=== PATIENT | male | born 1955 | race Caucasian/White ===

== ENCOUNTER 2023-01-29 16:12 | Emergency (ER) | payer OTHER ==
[2023-01-29 16:33] VITALS: BP 137/89; PULSE 61; RESP 20; TEMP 99.2; BMI 23.1
[2023-01-29 17:45] LABS: HEMATOCRIT 44.7 % (35.4-49); HEMOGLOBIN 14.8 G/dL (11.7-16.9); MCH 32.6 pg (25.7-33.7); MCHC 33.2 g/dl (32.0-35.9); MEAN CELL VOLUME 98.4 fl (80-96); MEAN PLT VOLUME 8.5 fl (7.5-11.1); PLATELET COUNT 244.9 10^3/uL (134-434); RBC 4.54 10^6/uL (4.00-5.60); RDW 13.2 % (11.9-15.9); WHITE BLOOD COUNT 6.3 10^3/uL (4.0-10.8)
[2023-01-29 17:57] LABS: ALBUMIN 4.2 g/dl (3.4-5.0); CALCIUM 9.2 mg/dl (8.5-10); CREATININE 0.8 mg/dl (0.55-1.3); MAGNESIUM 1.9 mg/dL (1.8-2.4); POTASSIUM 3.9 mmol/L (3.5-5.1)
== END 2023-01-29 18:51 | disposition home or self-care (01) ==
LOC: FER 16:12
DX: S00.31XA Abrasion of nose, initial encounter (principal); R55 Syncope and collapse; W18.09XA Striking against other object with subsequent fall, initial encounter; Y93.73 Activity, racquet and hand sports; Y92.318 Other athletic court as the place of occurrence of the external cause
CPT/HCPCS: 36415; 70450-TC; 71045-TC-FY; 80053; 83735; 84484; 85027; 93005; 99285-25

== ENCOUNTER 2023-04-05 09:50 | Emergency (ER) | payer OTHER ==
[2023-04-05 10:05] VITALS: BP 153/86; PULSE 63; RESP 18; TEMP 98.2; BMI 22.4
[2023-04-05] MEDS ORDERED: KETOROLAC TROMETHAMINE 30 MG/1 ML VIAL IM ONE (10:12)
[2023-04-05] MEDS ORDERED: KETOROLAC TROMETHAMINE 30 MG/1 ML VIAL ONE (10:14)
== END 2023-04-05 11:48 | disposition home or self-care (01) ==
LOC: FER 09:50
PROC: 3E023GC Introduction of Other Therapeutic Substance into Muscle, Percutaneous Approach (ICD-10-PCS; principal; 2023-04-05)
DX: M25.521 Pain in right elbow (principal)
CPT/HCPCS: 73070-TC-RT-FY; 99284-25

== ENCOUNTER 2023-12-18 06:50 | Day surgery (SDC) | payer OTHER ==
[2023-12-09 16:41] VITALS: BMI 23.1
[2023-12-18] MEDS ORDERED: BUPIVACAINE HCL/EPINEPHRINE/PF 30 ML VIAL IJ ONE (07:27)
[2023-12-18] MEDS ORDERED: PROPOFOL 20 ML ONE ×2 (08:17→09:06)
[2023-12-18] MEDS ORDERED: MIDAZOLAM HCL 2 MG/2 ML SINGLE DOSE VIAL ONE (08:17)
[2023-12-18] MEDS ORDERED: ceFAZolin SODIUM 1 GM VIAL ONE ×2 (08:52→09:05)
[2023-12-18] MEDS ORDERED: DEXAMETHASONE SOD PHOSPHATE 4 MG/1 ML VIAL ONE ×2 (08:52→09:05)
[2023-12-18] MEDS ORDERED: KETOROLAC TROMETHAMINE 30 MG/1 ML VIAL ONE ×2 (08:52→09:05)
[2023-12-18] MEDS ORDERED: ONDANSETRON 4 MG/2 ML VIAL ONE ×2 (08:52→09:05)
[2023-12-18] MEDS: BUPIVACAINE 0.25% /EPI 1:200,000 10 ML VIAL NR ONE (08:58)
[2023-12-18] MEDS ORDERED: oxyCODONE HCL 5 MG TABLET PO PRN (09:22)
[2023-12-18] MEDS ORDERED: ONDANSETRON 4 MG/2 ML VIAL IVPUSH PRN (09:22)
[2023-12-18] MEDS: ACETAMINOPHEN 1000 MG/100 ML BAG IVPB ONE (09:28)
[2023-12-18] MEDS ORDERED: LACTATED RINGERS SOLUTION 1,000 ML IV SCH (09:30)
[2023-12-18 10:58] VITALS: RESP 16; TEMP 97.8
[2023-12-18 11:01] VITALS: BP 122/70; PULSE 65
== END 2023-12-18 11:01 | disposition home or self-care (01) ==
LOC: FASU 06:50
PROVIDERS: ATTEND Orthopaedic Surgery
PROC: 0SBC4ZX Excision of Right Knee Joint, Percutaneous Endoscopic Approach, Diagnostic (ICD-10-PCS; 2023-12-18)
PROC: 0SBC4ZZ Excision of Right Knee Joint, Percutaneous Endoscopic Approach (ICD-10-PCS; principal; 2023-12-18 08:58)
DX: M67.51 Plica syndrome, right knee (principal); S83.241A Other tear of medial meniscus, current injury, right knee, initial encounter; X58.XXXA Exposure to other specified factors, initial encounter; Y93.9 Activity, unspecified; Y92.9 Unspecified place or not applicable
CPT/HCPCS: 88304-TC; 94760; J0131